=== PATIENT | female | born 1935 | race Caucasian/White ===

== ENCOUNTER 2024-12-28 14:34 | Outpatient (CLI) | payer MEDICARE, SELFPAY ==
--- NOTE | 2024-12-28 14:30 | CRLHL7_ITS ---
For Patients: As a result of the Cures Act, medical imaging exams and procedure reports are released immediately into your electronic medical record. You may view this report before your referring provider. If you have questions, please contact your health care provider. Indication: Periprosthetic fracture. Technique: Right knee 3 views. Comparison: None. Findings/Impression: Plate and screws are fixating the minimally displaced fracture of the distal femur. Total knee arthroplasty also present. No hardware complications. Dictated by Teo Mosqueda MD @ 12/28/2024 6:33:48 PM (Electronically Signed)
--- NOTE | 2024-12-28 14:30 | CRLHL7_ITS ---
For Patients: As a result of the Cures Act, medical imaging exams and procedure reports are released immediately into your electronic medical record. You may view this report before your referring provider. If you have questions, please contact your health care provider. Indication: Periprosthetic fracture. Technique: Right femur 4 views. Comparison: None. Findings/Impression: Hardware from a total knee arthroplasty is in satisfactory position. There is a plate and screws fixating a minimally displaced fracture in the distal femur. This hardware is also in satisfactory position. Severe right hip joint arthritis. Dictated by Teo Mosqueda MD @ 12/28/2024 6:32:37 PM (Electronically Signed)
== END 2024-12-28 14:35 | disposition home or self-care (01) ==
PROVIDERS: Visit Provider Physician Assistant
DX: M97.11XA Periprosthetic fracture around internal prosthetic right knee joint, initial encounter (principal); M16.11 Unilateral primary osteoarthritis, right hip
CPT/HCPCS: 73552; 73562

== ENCOUNTER 2025-01-26 13:21 | Outpatient (CLI) | payer MEDICARE, SELFPAY ==
--- NOTE | 2025-01-26 13:30 | CRLHL7_ITS ---
For Patients: As a result of the Cures Act, medical imaging exams and procedure reports are released immediately into your electronic medical record. You may view this report before your referring provider. If you have questions, please contact your health care provider. Indication: Periprosthetic fracture Technique: Right femur 4 views Comparison: 12/28/2024 Findings: Please see impression Impression: Similar appearance and alignment of a nondisplaced distal femoral periprosthetic fracture. Minimal interval callus formation, the fracture lines remain visible. Screw and plate fixation in unchanged alignment without evidence of complication. Unchanged right knee arthroplasty. Similar severe right hip degenerative change Dictated by Mervat Samano MD @ 01/30/2025 9:04:24 AM (Electronically Signed)
== END 2025-01-26 13:22 | disposition home or self-care (01) ==
LOC: RAD 13:23
PROVIDERS: Visit Provider Physician Assistant
DX: M97.11XA Periprosthetic fracture around internal prosthetic right knee joint, initial encounter (principal)
CPT/HCPCS: 73552

== ENCOUNTER 2025-02-23 13:24 | Outpatient (CLI) | payer MEDICARE, SELFPAY ==
--- NOTE | 2025-02-23 13:30 | CRLHL7_ITS ---
For Patients: As a result of the Cures Act, medical imaging exams and procedure reports are released immediately into your electronic medical record. You may view this report before your referring provider. If you have questions, please contact your health care provider. Indication: PERIPROSTHETIC FRACTURE AROUND INTERNAL PROSTHETIC RIGHT KNEE Technique: Two views right knee Comparison: 12/28/2024 IMPRESSION: Progressive callus formation about the distal femoral fracture with stable alignment and intact lateral plate and screw fixation hardware. Dictated by Gunner Zhao MD @ 02/24/2025 11:56:21 AM (Electronically Signed)
== END 2025-02-23 13:25 | disposition home or self-care (01) ==
LOC: RAD 13:26
PROVIDERS: Visit Provider Physician Assistant
DX: M97.11XA Periprosthetic fracture around internal prosthetic right knee joint, initial encounter (principal); M25.761 Osteophyte, right knee; Z96.651 Presence of right artificial knee joint
CPT/HCPCS: 73560